=== PATIENT | male | born 1995 ===

== ENCOUNTER → 2022-11-29 | Outpatient (CLI) | payer SELFPAY ==
[2022-11-30 10:10] LABS: HBSAG SCREEN Negative (Negative); HCV ANTIBODY Reactive (Non Reactive)
[2022-11-30 10:37] LABS: HIV AB/P24 AG SCREEN Non Reactive (Non Reactive)
== END | disposition home or self-care (01) ==
LOC: LAB SHORT 15:37 → LAB 15:37
PROVIDERS: Chiropractor
DX: Z20.9 Contact with and (suspected) exposure to unspecified communicable disease (principal)
CPT/HCPCS: 84460; 86317; 86803; 87340; 87389

== ENCOUNTER → 2023-01-10 | Outpatient (CLI) | payer OTHER ==
[2023-01-11 10:15] LABS: HIV AB/P24 AG SCREEN Non Reactive (Non Reactive)
[2023-01-13 09:11] LABS: HBSAG SCREEN Negative (Negative); HCV AB Equivocal (Non Reactive); HEP A AB, IGM Negative (Negative); HEP B CORE AB, TOT Negative (Negative); HEPATITIS C QUANTITATION HCV Not Detected IU/mL (.)
== END | disposition home or self-care (01) ==
LOC: LAB SHORT 11:43 → LAB 11:43
PROVIDERS: Chiropractor
DX: Z20.9 Contact with and (suspected) exposure to unspecified communicable disease (principal)
CPT/HCPCS: 86704; 86708; 86803; 87340; 87389